=== PATIENT | male | born 1945 | race Caucasian/White ===

== ENCOUNTER 2020-12-23 07:41 | Day surgery (SDC) | payer MEDICARE ==
[~2020-12-23] VITALS: Ht 182.9 cm; Wt 104.3 kg
[~2020-12-23 07:41] MED LIST: ALL DAY10 MG PO; AMOXICILLIN/CL875 MG PO; ASPIRIN LOW DOS81 M2 PO; ASPIRIN81 MG PO; ATORVASTATIN CA20 MG PO; B121000 MCG PO; CELEBREX200 M1 PO; CVS OMEPRAZOLE20 M1 PO; DILTIAZEM120 MG PO; DIOVAN HC2 PO; FLONASE AL50 MCG/ACT IN; GLUCOSAMINE; GLUCOSAMINE PO; LISINOP/HCTZ1 TA1 PO; LORATADINE10 M1 PO; MULTIVITAMI9 PO; ONE DAIL1 PO; POTASSIUM CHLO20 MEQ PO; PROBIOTI2 PO; RESTASIS0.05 % OU; TAMSULOSIN0.4 MG PO
[2020-12-23] MEDS ORDERED: PERCOCET 5/325M1 TAB PO (12:39)
[2020-12-23 13:12] VITALS: BP 139/69
== END 2020-12-23 13:38 | disposition home or self-care (01) ==
LOC: ORM 07:41
PROVIDERS: ATTEND Surgery
PROC: 0YU54JZ Supplement Right Inguinal Region with Synthetic Substitute, Percutaneous Endoscopic Approach (ICD-10-PCS; principal; 2020-12-23)
DX: K40.90 Unilateral inguinal hernia, without obstruction or gangrene, not specified as recurrent (principal); I10 Essential (primary) hypertension; Z20.822 Contact with and (suspected) exposure to COVID-19
CPT/HCPCS: C1781; J0131; J2710

== ENCOUNTER 2021-01-30 20:08 | Emergency (ER) | payer MEDICARE ==
[~2021-01-30] VITALS: Ht 182.9 cm; Wt 104.5 kg
[~2021-01-30 20:08] MED LIST changes: +PERCOCET 5/325M1 TAB PO
[2021-01-30 21:06] LABS: HEMATOCRIT 50.3 % (39.0-50.0); HEMOGLOBIN 16.4 g/dl (14.0-18.0); IMMATURE GRANULOCYTES 0.4 % (0.0-5.0); MEAN CORPUSCULAR HGB CONC 32.6 g/dL CAL (32.0-36.0); NEUT# 8.58 thou/uL (1.82-7.42); RED BLOOD COUNT 5.65 mill/uL (4.70-6.10); RED CELL DISTRI WIDTH 13.8 % (11.5-15.5)
[2021-01-30 21:07] LABS: URINE BILIRUBIN - DIPSTICK NEGATIVE (NEGATIVE); URINE BLOOD DIPSTICK NEGATIVE (NEGATIVE); URINE COLOR YELLOW; URINE GLUCOSE - DIPSTICK NEGATIVE (NEGATIVE); URINE KETONE NEGATIVE (NEGATIVE); URINE LEUK ESTERASE NEGATIVE (NEGATIVE); URINE NITRITE - DIPSTICK NEGATIVE (Negative); URINE PROTEIN - DIPSTICK 30 mg/dL (NEG-TRACE); URINE SPECIFIC GRAVITY 1.025; URINE UROBILINOGEN - DIPSTICK 0.2 E.U./dL (0.2)
[2021-01-30 21:17] LABS: ALBUMIN 4.8 g/dL (3.2-5.0); ALKALINE PHOSPHATASE 161 u/l (38-126); AMYLASE 65 u/l (30-110); ANION GAP 14 (6-22 (CALC)); BUN 14 mg/dL (8-23); BUN/CREATININE RATIO 15 (12-20 (CALC)); CARBON DIOXIDE 27 mmol/l (22-30); CHLORIDE 103 mmol/l (95-108); GFR > 60 ML/MIN (>=60 (CALC)); GFR FOR AFR.AMER. > 60 ML/MIN (>=60 (CALC)); LIPASE 75 u/l (23-300); POTASSIUM 3.5 mmol/l (3.5-5.1); SGOT/AST 24 u/l (19-48); SODIUM 140 mmol/l (137-146); TOTAL PROTEIN 7.5 g/dL (6.3-8.2)
[2021-01-30 21:18] LABS: BILIRUBIN, TOTAL 1.1 mg/dL (0.0-1.4)
[2021-01-30 21:29] LABS: MYOGLOBIN 36 ng/mL (0 - 121)
[2021-01-30 23:52] VITALS: BP 166/81
== END 2021-01-30 23:49 ==
LOC: ED 20:08
PROVIDERS: Emergency Medicine
DX: K56.609 Unspecified intestinal obstruction, unspecified as to partial versus complete obstruction (principal); I10 Essential (primary) hypertension; K21.9 Gastro-esophageal reflux disease without esophagitis; E78.00 Pure hypercholesterolemia, unspecified; Z20.822 Contact with and (suspected) exposure to COVID-19
CPT/HCPCS: S0164

== ENCOUNTER 2022-12-04 16:52 | Emergency (ER) | payer MEDICARE ==
[~2022-12-04] VITALS: Ht 180.3 cm; Wt 100.0 kg
[~2022-12-04 16:52] MED LIST changes: +POTASSIUM CHLO10 MEQ PO; -POTASSIUM CHLO20 MEQ PO
[2022-12-04] MEDS ORDERED: CO Q 10100 MG PO (17:30)
[2022-12-04] MEDS ORDERED: CLOPIDOGREL75 MG PO (17:30)
[2022-12-04] MEDS ORDERED: TAM75CAP PO (17:51)
[2022-12-04 18:14] VITALS: BP 176/61
== END 2022-12-04 18:20 | disposition home or self-care (01) ==
LOC: ED 16:52
DX: J11.1 Influenza due to unidentified influenza virus with other respiratory manifestations (principal); I10 Essential (primary) hypertension; K21.9 Gastro-esophageal reflux disease without esophagitis; E78.00 Pure hypercholesterolemia, unspecified; Z86.73 Personal history of transient ischemic attack (TIA), and cerebral infarction without residual deficits; Z20.822 Contact with and (suspected) exposure to COVID-19